=== PATIENT | female | born 1995 | race Caucasian/White ===

== ENCOUNTER → 2021-12-01 | Outpatient (CLI) | payer BC ==
[2021-12-01 14:30] LABS: Candida species (DNA Probe) Negative (NEGATIVE); G. vaginalis (DNA Probe) Negative (NEGATIVE); T. vaginalis (DNA Probe) Negative (NEGATIVE)
== END ==
LOC: LAB SHORT 13:30
PROVIDERS: Physician Assistant
DX: N76.0 Acute vaginitis (principal); N39.0 Urinary tract infection, site not specified
CPT/HCPCS: 87480; 87510; 87660

== ENCOUNTER → 2024-07-25 | Outpatient (CLI) | payer BC ==
[2024-07-25 10:37] LABS: Source, Urine Clean Catch
[2024-07-25 12:04] LABS: Bacteria Many /hpf; Red Blood Cells, Urine 0-2 /hpf (0-2); Squamous Epithelial Cells Few /hpf (Few); White Blood Cells, Urine 0-2 /hpf (0-5)
== END | disposition home or self-care (01) ==
LOC: LAB SHORT 10:35 → LAB 10:35
PROVIDERS: Advanced Practice Midwife
DX: O09.91 Supervision of high risk pregnancy, unspecified, first trimester (principal)
CPT/HCPCS: 81015; 87086

== ENCOUNTER → 2024-12-08 | Outpatient (CLI) | payer BC ==
[2024-12-08 15:50] LABS: Bacterial Vaginosis PCR Negative (NEGATIVE); Candida Group, PCR NOT DETECTED (NOT DETECT); Candida glabrata-krusei, PCR NOT DETECTED (NOT DETECT)
== END ==
LOC: LAB SHORT 11:38 → LAB 11:38
PROVIDERS: Advanced Practice Midwife
DX: O09.90 Supervision of high risk pregnancy, unspecified, unspecified trimester (principal); O99.891 Other specified diseases and conditions complicating pregnancy; N89.8 Other specified noninflammatory disorders of vagina; Z3A.00 Weeks of gestation of pregnancy not specified
CPT/HCPCS: 81515; 87081; 87150

== ENCOUNTER 2025-01-08 06:41 | Inpatient (IN) | payer BC ==
[2025-01-08] VITALS (13 sets, daily range): BP systolic 125–143; BP diastolic 65–85
[~2025-01-08] VITALS: Ht 160 cm; Wt 100.5 kg
[2025-01-08] MEDS ORDERED: FentaNYL Citrate 50 MCG/ML 2 ML Injection IV PRN (08:20)
[2025-01-08] MEDS ORDERED: Ondansetron HCl 2 MG / ML 2ML Vial IV PRN (08:25)
[2025-01-08] MEDS ORDERED: OXYTOCIN/RINGER'S LACTATE 500 ML IV PRN (08:25)
[2025-01-08] MEDS ORDERED: Lactated Ringer's 1,000 ML IV PRN ×4 (08:25→08:45)
[2025-01-08] MEDS ORDERED: Carboprost Tromethamine 250 MCG/ML 1ML Amp IM PRN (08:25)
[2025-01-08] MEDS ORDERED: Acetaminophen 500 MG Tab PO PRN (08:25)
[2025-01-08] MEDS ORDERED: ePHEDrine Sulfate 50 MG/ML 1ML Injection XX PRN (08:25)
[2025-01-08] MEDS ORDERED: FentaNYL 2mcg/ml-Bup 0.1% Epd 250 ML EPI PRN (08:25)
[2025-01-08] MEDS ORDERED: Methylergonovine Maleate 0.2MG / ML 1ML Amp IM PRN (08:25)
[2025-01-08] MEDS ORDERED: Misoprostol 200 MCG Tab PR PRN (08:25)
[2025-01-08] MEDS ORDERED: Misoprostol 200 MCG Tab BC PRN (08:25)
[2025-01-08] MEDS ORDERED: Oxytocin 10 Unit / ML Vial IM PRN (08:25)
[2025-01-08] MEDS ORDERED: Calcium Carbonate 500 MG Tab Chew PO PRN (08:45)
[2025-01-08] MEDS ORDERED: Penicillin G Potassium 5,000,000 UNITS in NS 250 ML IV ONE (08:50)
[2025-01-08] MEDS ORDERED: OXYTOCIN/RINGER'S LACTATE 500 ML IV SCH (08:50)
[2025-01-08 08:55] LABS: BASOPHILS ABSOLUTE AUTO 0.05 K/mm3 (0.00-0.23); BASOPHILS PERCENT AUTO 1 % (0-2); EOSINOPHILS ABSOLUTE AUTO 0.19 K/mm3 (0.00-0.68); EOSINOPHILS PERCENT AUTO 2 % (0-6); Hematocrit 32.8 % (33.0-51.0); Hemoglobin 10.9 g/dL (11.5-16.0); IMMATURE GRAN ABSOLUTE AUTO 0.15 K/mm3 (0.00-0.10); IMMATURE GRAN PERCENT AUTO 2 % (0-1); LYMPHOCYTES ABSOLUTE AUTO 1.32 K/mm3 (0.84-5.20); LYMPHOCYTES PERCENT AUTO 15 % (21-46); MONOCYTES ABSOLUTE AUTO 0.61 K/mm3 (0.16-1.47); MONOCYTES PERCENT AUTO 7 % (4-13); Mean Corpuscular HGB 29.2 pg (26.0-34.0); Mean Corpuscular HGB Conc 33.2 g/dL (31.5-36.5); Mean Corpuscular Volume 88 fL (80-100); Mean Platelet Volume 10.7 fL (9.1-12.4); NEUTROPHILS ABSOLUTE AUTO 6.77 K/mm3 (1.96-9.15); NEUTROPHILS PERCENT AUTO 74 % (41-73); Platelet Count 250 K/mm3 (150-400); RDW Coefficient Variation 14.4 % (11.7-14.2); RDW Standard Deviation 46.2 fL (35.1-46.3); Red Blood Cell Count 3.73 M/mm3 (3.80-5.20); White Blood Cell Count 9.09 K/mm3 (4.00-11.30)
[2025-01-08] MEDS ORDERED: Tranexamic Acid 100 ML IV SCH (08:55)
[2025-01-08] MEDS ORDERED: Penicillin G Potassium 2,500,000 UNITS in Dextrose 5% 100 ML IV SCH (13:30)
[2025-01-09] VITALS (34 sets, daily range): BP systolic 102–141; BP diastolic 21–84
[2025-01-09] MEDS ORDERED: FentaNYL Citrate 50 MCG/ML 2 ML Injection ONE ×3 (00:18→08:36)
[2025-01-09] MEDS ORDERED: Azithromycin 500 MG in NS 250 ML IV SCH (07:05)
[2025-01-09] MEDS ORDERED: CeFAZolin Sodium 2,000 MG in NS 100 ML IV SCH (07:05)
[2025-01-09] MEDS ORDERED: Metoclopramide HCl 5MG / ML 2ML Vial IV ONE (07:10)
[2025-01-09] MEDS ORDERED: Citric Acid/Sodium Citrate 30 ML BTL PO ONE (07:10)
[2025-01-09 07:50] LABS: BASOPHILS ABSOLUTE AUTO 0.03 K/mm3 (0.00-0.23); BASOPHILS PERCENT AUTO 0 % (0-2); EOSINOPHILS ABSOLUTE AUTO 0.11 K/mm3 (0.00-0.68); EOSINOPHILS PERCENT AUTO 1 % (0-6); Hematocrit 30.9 % (33.0-51.0); Hemoglobin 10.2 g/dL (11.5-16.0); IMMATURE GRAN ABSOLUTE AUTO 0.11 K/mm3 (0.00-0.10); IMMATURE GRAN PERCENT AUTO 1 % (0-1); LYMPHOCYTES ABSOLUTE AUTO 1.49 K/mm3 (0.84-5.20); LYMPHOCYTES PERCENT AUTO 12 % (21-46); MONOCYTES ABSOLUTE AUTO 0.88 K/mm3 (0.16-1.47); MONOCYTES PERCENT AUTO 7 % (4-13); Mean Corpuscular HGB 29.1 pg (26.0-34.0); Mean Corpuscular Volume 88 fL (80-100); Mean Platelet Volume 10.5 fL (9.1-12.4); NEUTROPHILS ABSOLUTE AUTO 9.57 K/mm3 (1.96-9.15); NEUTROPHILS PERCENT AUTO 79 % (41-73); Platelet Count 245 K/mm3 (150-400); RDW Coefficient Variation 14.6 % (11.7-14.2); RDW Standard Deviation 47.2 fL (35.1-46.3); Red Blood Cell Count 3.51 M/mm3 (3.80-5.20); White Blood Cell Count 12.19 K/mm3 (4.00-11.30)
[2025-01-09] MEDS ORDERED: Phenylephrine HCl 100 MCG/ML-NS 10MLSYR (1MG/10ML) ONE (08:02)
[2025-01-09] MEDS ORDERED: Oxytocin 10 Unit / ML Vial ONE ×2 (08:02→08:43)
[2025-01-09] MEDS ORDERED: Lidocaine HCl 2% 10 ML SDA ONE ×2 (08:02→08:28)
--- NOTE | 2025-01-09 08:53 | NUR ---
01/09/25 0853 Juliane Palomino BABY GIRL BORN AT 0836 9/9, WEIGHT [id number] 9# [id number], HEAD 15" CHEST 14.5" LENGTH 21"
[2025-01-09] MEDS ORDERED: Bupivacaine 0.5% HCl 5 MG/ML 30MLVIAL ONE (08:56)
[2025-01-09] MEDS ORDERED: DiphenhydrAMINE HCl 50 MG/ML 1ML Vial IV PRN (09:45)
[2025-01-09] MEDS ORDERED: Lanolin Cream TOP PRN (09:45)
[2025-01-09] MEDS ORDERED: Naloxone HCl 0.4MG / ML 1ML Vial IV PRN (09:45)
[2025-01-09] MEDS ORDERED: Simethicone 80 MG Chew PO PRN (09:50)
[2025-01-09] MEDS ORDERED: Carboprost Tromethamine 250 MCG/ML 1ML Amp IM PRN (09:50)
[2025-01-09] MEDS ORDERED: OxyCODONE HCL 5 MG TAB PO PRN ×2 (09:50→09:55)
[2025-01-09] MEDS ORDERED: Metoclopramide HCl 10 MG Tab PO PRN (09:50)
[2025-01-09] MEDS ORDERED: Acetaminophen 500 MG Tab PO PRN (09:50)
[2025-01-09] MEDS ORDERED: Ketorolac Tromethamine 15mg Vial IV PRN (09:50)
[2025-01-09] MEDS ORDERED: Ondansetron HCl 2 MG / ML 2ML Vial IV PRN (09:50)
[2025-01-09] MEDS ORDERED: OXYTOCIN/RINGER'S LACTATE 500 ML IV SCH (09:55)
[2025-01-09] MEDS ORDERED: Misoprostol 200 MCG Tab PR PRN (09:55)
[2025-01-09] MEDS ORDERED: Magnesium Hydroxide Conc 10 ML UDC PO PRN (09:55)
[2025-01-09] MEDS ORDERED: DiphenhydrAMINE HCL 25 MG Cap PO PRN (09:55)
[2025-01-09] MEDS ORDERED: Ketorolac Tromethamine 30mg Vial IV SCH (10:00)
[2025-01-09] MEDS ORDERED: Promethazine HCl 25 MG Tab PO PRN (10:00)
[2025-01-09] MEDS ORDERED: FentaNYL Citrate 50 MCG/ML 2 ML Injection IV PRN (10:35)
[2025-01-09] MEDS ORDERED: Docusate Sodium 100 MG Cap PO SCH (21:00)
[2025-01-10 00:09] VITALS: BP 125/59
[2025-01-10 03:13] VITALS: BP 115/55
[2025-01-10] MEDS ORDERED: Ibuprofen 400 MG Tab PO SCH (06:00)
[2025-01-10 06:03] LABS: BASOPHILS ABSOLUTE AUTO 0.04 K/mm3 (0.00-0.23); BASOPHILS PERCENT AUTO 0 % (0-2); EOSINOPHILS ABSOLUTE AUTO 0.23 K/mm3 (0.00-0.68); EOSINOPHILS PERCENT AUTO 2 % (0-6); Hematocrit 25.5 % (33.0-51.0); Hemoglobin 8.5 g/dL (11.5-16.0); IMMATURE GRAN ABSOLUTE AUTO 0.13 K/mm3 (0.00-0.10); IMMATURE GRAN PERCENT AUTO 1 % (0-1); LYMPHOCYTES ABSOLUTE AUTO 1.53 K/mm3 (0.84-5.20); LYMPHOCYTES PERCENT AUTO 16 % (21-46); MONOCYTES ABSOLUTE AUTO 0.83 K/mm3 (0.16-1.47); MONOCYTES PERCENT AUTO 9 % (4-13); Mean Corpuscular HGB Conc 33.3 g/dL (31.5-36.5); Mean Corpuscular Volume 90 fL (80-100); Mean Platelet Volume 9.9 fL (9.1-12.4); NEUTROPHILS ABSOLUTE AUTO 7.05 K/mm3 (1.96-9.15); NEUTROPHILS PERCENT AUTO 72 % (41-73); Platelet Count 183 K/mm3 (150-400); RDW Coefficient Variation 14.6 % (11.7-14.2); Red Blood Cell Count 2.83 M/mm3 (3.80-5.20); White Blood Cell Count 9.81 K/mm3 (4.00-11.30)
[2025-01-10 07:11] VITALS: BP 121/57
[2025-01-10] MEDS ORDERED: Prenatal Vit/FE Fumarate/FA 1 Tab PO SCH (09:00)
[2025-01-10] MEDS ORDERED: Sod Ferric Gluc Complx/Sucrose 125 MG in NS 100 ML IV SCH (12:00)
[2025-01-10 12:02] VITALS: BP 116/66
[2025-01-10 17:12] VITALS: BP 131/60
[2025-01-10 18:59] VITALS: BP 129/71
[2025-01-10] MEDS ORDERED: Polyethylene Glycol 3350 17 gm PO PRN (20:10)
[2025-01-11 00:53] VITALS: BP 123/56
[2025-01-11 04:09] VITALS: BP 118/59
[2025-01-11 07:54] VITALS: BP 133/78
[2025-01-11] MEDS ORDERED: IBUP800 PO (10:33)
[2025-01-11] MEDS ORDERED: OXAYDO5 M1 PO (10:33)
[2025-01-11] MEDS ORDERED: ACET500 PO (10:34)
[2025-01-11] MEDS ORDERED: DOCU100 PO (10:34)
[2025-01-11] MEDS ORDERED: MIRALAX17 GM PO (10:35)
[2025-01-11 11:14] VITALS: BP 126/73
== END 2025-01-11 11:25 | disposition home or self-care (01) | DRG 788 ==
LOC: OBS 06:41 → BC 06:43 → OBS 06:50 → BC 06:50
PROVIDERS: Obstetrics & Gynecology; ADMIT Advanced Practice Midwife
PROC: 10907ZC Drainage of Amniotic Fluid, Therapeutic from Products of Conception, Via Natural or Artificial Opening (ICD-10-PCS; 2025-01-08)
PROC: 0U7C7ZZ Dilation of Cervix, Via Natural or Artificial Opening (ICD-10-PCS; 2025-01-08)
PROC: 3E033VJ Introduction of Other Hormone into Peripheral Vein, Percutaneous Approach (ICD-10-PCS; 2025-01-08)
PROC: 4A1HXCZ Monitoring of Products of Conception, Cardiac Rate, External Approach (ICD-10-PCS; 2025-01-08)
PROC: 10H07YZ Insertion of Other Device into Products of Conception, Via Natural or Artificial Opening (ICD-10-PCS; 2025-01-09)
PROC: 10D00Z1 Extraction of Products of Conception, Low, Open Approach (ICD-10-PCS; principal; 2025-01-09 08:00)
DX: O48.0 Post-term pregnancy (principal); O13.4 Gestational [pregnancy-induced] hypertension without significant proteinuria, complicating childbirth; Z3A.40 40 weeks gestation of pregnancy; Z37.0 Single live birth; O99.824 Streptococcus B carrier state complicating childbirth; O99.214 Obesity complicating childbirth; O61.0 Failed medical induction of labor; O99.02 Anemia complicating childbirth; D64.89 Other specified anemias; O99.03 Anemia complicating the puerperium; O76 Abnormality in fetal heart rate and rhythm complicating labor and delivery
CPT/HCPCS: 36415; 51702; 59200; 82947; 85025; 86850; 86900; 86901; 86923; A9270; J0456; J0690; J1885; J2003; J2371; J2405; J2540; J2590; J2916; J3010; J7050; J7120